=== PATIENT | male | born 1960 | race Caucasian/White ===

== ENCOUNTER 2018-05-08 15:43 | Emergency (ER) | payer MEDICAID ==
[~2018-05-08] VITALS: Ht 170.2 cm; Wt 74.0 kg
[~2018-05-08 15:43] MED LIST: ALBU8.5H8 INH; HYDR-4383 PO; IBUP-1985 PO; IBUP-1986 PO; IBUP-814 PO; NAPR-996 PO; NO HOME MEDS; PSEU-259 PO
[2018-05-08 17:11] LABS: BASOPHILS # (AUTO) 0.1 X10'3 (0-0.2); BASOPHILS % (AUTO) 0.8 % (0-1); EOSINOPHILS % (AUTO) 0.4 % (0-6); HEMATOCRIT 39.8 % (42.0-52.0); HEMOGLOBIN 13.5 g/dl (14.0-17.9); LYMPHOCYTES # (AUTO) 2.1 X10'3 (1.1-4.8); LYMPHOCYTES % (AUTO) 18.8 % (21-51); MEAN CORPUSCULAR HEMOGLOBIN 33.6 PG (27.0-31.0); MEAN CORPUSCULAR VOLUME 98.9 FL (78-98); MEAN PLATELET VOLUME 7.9 FL (7.4-10.4); MONOCYTES # (AUTO) 1.1 X10'3 (0-0.9); MONOCYTES % (AUTO) 10.5 % (2-12); NEUTROPHILS # (AUTO) 7.6 X10'3 (1.8-7.7); NEUTROPHILS % (AUTO) 69.5 % (42-75); PLATELET COUNT 315 X10'3 (140-440); RED BLOOD COUNT 4.02 X10'6 (4.70-6.10); RED CELL DISTRIBUTION WIDTH 13.4 % (11.5-14.5); WHITE BLOOD COUNT 10.9 X10'3 (4.5-11.0)
[2018-05-08 17:31] LABS: PARTIAL THROMBOPLASTIN TIME 28 SECONDS (22-32)
[2018-05-08 17:36] LABS: CLARITY,URINE CLEAR (Clear); COLOR,URINE YELLOW (Yellow); GLUCOSE, URINE NEGATIVE (Neg); KETONES,URINE NEGATIVE (Neg); LEUKOCYTE ESTERASE ,URINE NEGATIVE (Neg); NITRITES, URINE NEGATIVE (Neg); OCCULT BLOOD,URINE NEGATIVE (Neg); PH,URINE 6.5 (4.8-8.0); PROTEIN,URINE NEGATIVE (Neg); UA COLLECTION TYPE URINAL; UROBILINOGEN,URINE 0.2 E.U/dL (0.2-1.0)
[2018-05-08 17:41] LABS: ALANINE AMINOTRANSFERASE 35 U/L (12-78); ALBUMIN 3.3 G/DL (3.4-5.0); ALBUMIN/GLOBULIN RATIO 0.9 (1.1-1.5); ALKALINE PHOSPHATASE 88 IU/L (46-116); ANION GAP 12 (8-16); ASPARTATE AMINO TRANSFERASE 33 U/L (10-37); BILIRUBIN,TOTAL 0.6 MG/DL (0.1-1.0); BLOOD UREA NITROGEN 10 MG/DL (7-18); BUN/CREATININE RATIO 10.6 (5.4-32.0); CALCIUM 8.8 MG/DL (8.5-10.1); CHLORIDE 97 MMOL/L (99-107); CREATININE 0.94 MG/DL (0.60-1.10); GLUCOSE 96 MG/DL (70-104); MAGNESIUM 1.6 MG/DL (1.5-2.4); POTASSIUM 4.1 MMOL/L (3.5-5.1); SODIUM 132 MMOL/L (135-145); TOTAL CARBON DIOXIDE 23.2 MMOL/L (24-32); TOTAL PROTEIN 6.8 G/DL (6.4-8.2); eGFR 83 ML/MIN
[2018-05-08] MEDS ORDERED: ibuprofen tablet 400 MG TABLET PO ONE (17:50)
[2018-05-08 17:53] VITALS: BP 136/85
--- NOTE | 2018-05-08 18:29 | NUR ---
PT GIVEN ICE PACK FOR RIGHT FOOT. PT PAIN 10/10
[2018-05-08] MEDS ORDERED: SULF1TAB49 PO (18:40)
== END 2018-05-08 19:42 | disposition home or self-care (01) ==
LOC: ER 15:44
DX: L02.415 Cutaneous abscess of right lower limb (principal); L03.115 Cellulitis of right lower limb; R79.1 Abnormal coagulation profile; Z79.899 Other long term (current) drug therapy
CPT/HCPCS: 10060; 36415; 73610; 80053; 81003; 83605; 83735; 84145; 85025; 85610; 85651; 85730; 86140; 87040; 99284

== ENCOUNTER 2018-09-15 15:42 | Emergency (ER) | payer MEDICAID ==
[~2018-09-15] VITALS: Ht 180.3 cm; Wt 66.9 kg
[2018-09-15] MEDS ORDERED: TETanus/Pertussis (Acell)/Diphther VAC/PF (Tdap-Adult) 0.5ml syringe IM ONE (16:30)
[2018-09-15] MEDS ORDERED: LIDOcaine 1% w/epiNEPHrine 1:200,000 30ml vial IM ONE (16:30)
[2018-09-15] MEDS ORDERED: CEPH250T PO (16:49)
[2018-09-15 17:06] VITALS: BP 125/88
== END 2018-09-15 17:14 | disposition home or self-care (01) ==
LOC: ER 17:12
DX: S81.812A Laceration without foreign body, left lower leg, initial encounter (principal); Z98.890 Other specified postprocedural states; Z79.899 Other long term (current) drug therapy; W25.XXXA Contact with sharp glass, initial encounter; Y93.89 Activity, other specified; Y92.89 Other specified places as the place of occurrence of the external cause; Y99.8 Other external cause status
CPT/HCPCS: 12002; 90471; 99283

== ENCOUNTER 2019-10-02 20:49 | Emergency (ER) | payer MEDICAID ==
[~2019-10-02] VITALS: Ht 180.3 cm; Wt 75.0 kg
[2019-10-02] MEDS ORDERED: LIDOcaine 1% 30ml preserv. free vial IJ ONE (23:35)
[2019-10-03] MEDS ORDERED: acetaminophen 325mg tablet PO ONE (01:25)
[2019-10-03] MEDS ORDERED: ibuprofen 200mg tablet PO ONE (01:25)
[2019-10-03 01:48] VITALS: BP 152/94
== END 2019-10-03 01:59 | disposition home or self-care (01) ==
LOC: ER 20:49
DX: S01.01XA Laceration without foreign body of scalp, initial encounter (principal); S01.312A Laceration without foreign body of left ear, initial encounter; F17.200 Nicotine dependence, unspecified, uncomplicated; Z98.890 Other specified postprocedural states; Z79.899 Other long term (current) drug therapy; W18.39XA Other fall on same level, initial encounter; Y93.89 Activity, other specified; Y92.89 Other specified places as the place of occurrence of the external cause; Y99.8 Other external cause status
CPT/HCPCS: 12002; 12013; 70450; 71046; 72125; 99285